=== PATIENT | male | born 1950 | race Caucasian/White ===

== ENCOUNTER 2023-07-14 15:29 | Emergency (ER) | payer MEDICARE, BC ==
[~2023-07-14] VITALS: Ht 182.9 cm; Wt 93.0 kg
[2023-07-14 15:42] VITALS: BP 148/76; PULSE 71; RESP 16; TEMP 98.7; O2SAT 98
[2023-07-14] MEDS ORDERED: METH-798 PO (16:37)
[2023-07-14] MEDS ORDERED: PRED20TA PO (16:37)
[2023-07-14] MEDS: dexamethasone sod phosphate 10mg/ml inj IM STA (16:43)
== END 2023-07-14 16:48 | disposition home or self-care (01) ==
LOC: ER 15:30
DX: G56.22 Lesion of ulnar nerve, left upper limb (principal)
CPT/HCPCS: 96372; 99283; J1100